=== PATIENT | female | born 1985 | race Caucasian/White ===

== ENCOUNTER 2018-05-18 16:24 | Emergency (ER) | payer SELFPAY ==
[2018-05-18] MEDS ORDERED: BUPIVACAINE 0.5% PF 10 ML VIAL ONE (17:19)
--- NOTE | 2018-05-18 18:01 | RAD REPORT ---
EXAM DESCRIPTION: RAD - Hand Left 3 View - 05/18/2018 5:43 pm CLINICAL HISTORY: Trauma distal third digit, hand pain COMPARISON: None. FINDINGS: No fracture, dislocation or periosteal reaction noted. No acute or destructive bone proces s. Soft tissue injury is present along the dorsal margin of the distal third digit. No foreign body o r air in the soft tissues. 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 IMPRESSION: Soft tissue injury left distal third digit. No foreign body or air in the soft tissues. No acute bone finding.
--- NOTE | 2018-05-18 19:00 | ER ---
Nurse's Notes [facility] Name: Yanet Galvez Age: 33 yrs Sex: Female : 1985 Arrival Date: 05/18/2018 Time: 16:26 Bed 14 Private MD: Diagnosis: Laceration without foreign body of left middle finger with damage to nail Presentation: 05/18 16:42 Presenting complaint: Patient states: Injury to the left middle finger, the nail is sg mostly missing. Transition of care: patient was not received from another setting of care. Onset of symptoms was May 18, 2018. Risk Assessment: Do you want to hurt yourself or someone else? Patient reports no desire to harm self or others. Initial Sepsis Screen: Does the patient meet any 2 criteria? No. Patient's initial sepsis screen is negative. Does the patient have a suspected source of infection? No. Patient's initial sepsis screen is negative. Care prior to arrival: None. 16:42 Method Of Arrival: Ambulatory sg 16:42 Acuity: [place] 3 sg Historical: - Allergies: 16:43 Morphine; sg - PMHx: 16:43 ADD/ADHD; sg - PSHx: 16:43 Appendectomy; pancreatitis; obstructed kidney; kidney stones; Bilateral Hand Sx; sg - Immunization history:: Adult Immunizations up to date. - Social history:: Smoking status: Patient uses tobacco products. - Ebola Screening: : Patient negative for fever greater than or equal to 101.5 degrees Fahrenheit, and additional compatible Ebola Virus Disease symptoms Patient denies exposure to infectious person Patient denies travel to an Ebola-affected area in the 21 days before illness onset No symptoms or risks identified at this time. Screenin:10 Abuse screen: Denies threats or abuse. Nutritional screening: No deficits noted. em Tuberculosis screening: No symptoms or risk factors identified. Fall Risk None identified. Assessment: 17:10 General: Appears uncomfortable, Behavior is calm, cooperative. Pain: Complains of pain em in left middle fingernail Pain currently is 10 out of 10 on a pain scale. Neuro: Level of Consciousness is awake, alert, obeys commands, Oriented to person, place, time, situation. Cardiovascular: Capillary refill < 3 seconds Patient's skin is warm and dry. Respiratory: Airway is patent Respiratory effort is even, unlabored, Respiratory pattern is regular, symmetrical. GI: Abdomen is flat. : No signs and/or symptoms were reported regarding the genitourinary system. EENT: No signs and/or symptoms were reported regarding the EENT system. Derm: Skin is intact, is healthy with good turgor, Skin is pink, warm \T\ dry. Wound noted left middle fingernail. Musculoskeletal: Capillary refill < 3 seconds, Range of motion: intact in all extremities. Injury Description: Crush injury sustained to left middle fingernail is smashed middle fingernail with a hammer, fingernail split in half, small bleeding noted was sustained 1-2 hours ago. 18:00 Reassessment: Patient appears in no apparent distress at this time. Patient and/or em family updated on plan of care and expected duration. Pain level reassessed. Patient is alert, oriented x 3, equal unlabored respirations, skin warm/dry/pink. pending for digit to become numb after medication infiltration. 19:09 Reassessment: Patient appears in no apparent distress at this time. Patient and/or tl2 family updated on plan of care and expected duration. Pain level reassessed. Patient is alert, oriented x 3, equal unlabored respirations, skin warm/dry/pink. pt verbalized understanding of discharge instructions, need for follow up, prescription usage and wound care. Vital Signs: 16:58 BP 118 / 75; Pulse 84; Resp 18; Temp 98.7; Pulse Ox 98% ; Weight 49.9 kg; Height 5 ft. ms 4 in. (162.56 cm); Pain 10/10; 18:06 BP 116 / 74; Pulse 68; Resp 18; Pulse Ox 99% on R/A; em 16:58 Body Mass Index 18.88 (49.90 kg, 162.56 cm) ms ED Course: 16:26 Patient arrived in ED. rg4 16:42 Arm band placed on. sg 16:43 Triage completed. sg 16:56 Xavier Meredith PA is PHCP. jr8 16:56 Jose Carlos Bobo MD is Attending Physician. jr8 17:10 Patient has correct armband on for positive identification. Bed in low position. Call em light in reach. Adult w/ patient. Pulse ox on. NIBP on. 17:19 Shan Hawkins LVN is Primary Nurse. em 17:43 XRAY Hand LEFT 3 View In Process Unspecified. EDMS 18:44 Assist provider with laceration repair on left middle fingernail that was 2.5 cm. or em less using sutures. Set up tray. Performed by Xavier THORPE Dressed with 4X4s, Patient tolerated well. 19:09 Patient did not have IV access during this emergency room visit. tl2 Administered Medications: 17:19 Drug: Marcaine (0.5 %) 1 vials Volume: 10 ml; Route: Infiltration; em 19:08 Drug: Demerol 25 mg Route: IM; Site: right deltoid; tl2 19:14 Follow up: Response: No adverse reaction; Medication administered at discharge. tl2 19:09 Drug: Zofran 4 mg Route: PO; tl2 19:14 Follow up: Response: No adverse reaction; Medication administered at discharge. tl2 Outcome: 19:00 Discharge ordered by . jr8 19:09 Discharged to home ambulatory, with family. tl2 19:09 Condition: stable 19:09 Discharge instructions given to patient, family, Instructed on discharge instructions, follow up and referral plans. medication usage, wound care, Demonstrated understanding of instructions, follow-up care, medications, wound care, Prescriptions given X 2. 19:16 Patient left the ED. tl2 Signatures: Dispatcher [employer] Rell Ricketts, [place] RN Shan Hawkins, LADLE HANDLER LADLE HANDLER Bri Connors ms, Josh, PA PA jr8 Mariia Moon RN RN tl2 Kaylyn Santos rg4 Corrections: (The following items were deleted from the chart) 17:09 16:58 BP 118 / 75; Pulse 84bpm; Resp 18bpm; Pulse Ox 98%; Pain 10/10; ms ms
--- NOTE | 2018-05-18 19:00 | EDPHYS ---
Physician Documentation [facility] Name: Yanet Galvez Age: 33 yrs Sex: Female : 1985 Arrival Date: 05/18/2018 Time: 16:26 Bed 14 Private MD: ED Physician Jose Carlos Bobo HPI: 05/18 19:01 This 33 yrs old Female presents to ER via Ambulatory with complaints of jr8 Finger Injury. 19:01 Onset: The symptoms/episode began/occurred acutely, today. The patient has not jr8 experienced similar symptoms in the past. The patient has not recently seen a physician. Patient was hammering and accidently hit her distal middle finger on the left hand. Historical: - Allergies: 16:43 Morphine; sg - PMHx: 16:43 ADD/ADHD; sg - PSHx: 16:43 Appendectomy; pancreatitis; obstructed kidney; kidney stones; Bilateral Hand Sx; sg - Immunization history:: Adult Immunizations up to date. - Social history:: Smoking status: Patient uses tobacco products. - Ebola Screening: : Patient negative for fever greater than or equal to 101.5 degrees Fahrenheit, and additional compatible Ebola Virus Disease symptoms Patient denies exposure to infectious person Patient denies travel to an Ebola-affected area in the 21 days before illness onset No symptoms or risks identified at this time. ROS: 19:01 Eyes: Negative for injury, pain, redness, and discharge, ENT: Negative for injury, jr8 pain, and discharge, Neck: Negative for injury, pain, and swelling, Cardiovascular: Negative for chest pain, palpitations, and edema, Respiratory: Negative for shortness of breath, cough, wheezing, and pleuritic chest pain, Abdomen/GI: Negative for abdominal pain, nausea, vomiting, diarrhea, and constipation, Back: Negative for injury and pain, Skin: Negative for injury, rash, and discoloration, Neuro: Negative for headache, weakness, numbness, tingling, and seizure. 19:01 MS/extremity: Positive for laceration, pain, swelling, tenderness, of the left middle fingernail. Exam: 19:01 Eyes: Pupils equal round and reactive to light, extra-ocular motions intact. Lids and jr8 lashes normal. Conjunctiva and sclera are non-icteric and not injected. Cornea within normal limits. Periorbital areas with no swelling, redness, or edema. ENT: Nares patent. No nasal discharge, no septal abnormalities noted. Tympanic membranes are normal and external auditory canals are clear. Oropharynx with no redness, swelling, or masses, exudates, or evidence of obstruction, uvula midline. Mucous membranes moist. Neck: Trachea midline, no thyromegaly or masses palpated, and no cervical lymphadenopathy. Supple, full range of motion without nuchal rigidity, or vertebral point tenderness. No Meningismus. Cardiovascular: Regular rate and rhythm with a normal S1 and S2. No gallops, murmurs, or rubs. Normal PMI, no JVD. No pulse deficits. Respiratory: Lungs have equal breath sounds bilaterally, clear to auscultation and percussion. No rales, rhonchi or wheezes noted. No increased work of breathing, no retractions or nasal flaring. Abdomen/GI: Soft, non-tender, with normal bowel sounds. No distension or tympany. No guarding or rebound. No evidence of tenderness throughout. Back: No spinal tenderness. No costovertebral tenderness. Full range of motion. Skin: Warm, dry with normal turgor. Normal color with no rashes, no lesions, and no evidence of cellulitis. Neuro: Awake and alert, GCS 15, oriented to person, place, time, and situation. Cranial nerves II-XII grossly intact. Motor strength 5/5 in all extremities. Sensory grossly intact. Cerebellar exam normal. Normal gait. 19:01 Musculoskeletal/extremity: Extremities: grossly normal except: noted in the left middle fingernail: Patient has nail deformity with small laceration to nail bed. No tuft fracture identified. Rest of finger without acute injury , ROM: intact in all extremities, Circulation is intact in all extremities. Sensation intact. Vital Signs: 16:58 BP 118 / 75; Pulse 84; Resp 18; Temp 98.7; Pulse Ox 98% ; Weight 49.9 kg; Height 5 ft. ms 4 in. (162.56 cm); Pain 10/10; 18:06 BP 116 / 74; Pulse 68; Resp 18; Pulse Ox 99% on R/A; em 16:58 Body Mass Index 18.88 (49.90 kg, 162.56 cm) ms Procedures: 19:01 Nerve block: (digital) of palmar aspect of proximal phalanx of left middle finger jr8 Medication: Marcaine 0.5%, Amount: 2.5 mls were injected, Effect: the patient has resolution of the pain, Set up for procedure. Performed by Xavier THORPE Patient tolerated well. Performed Nail removal. Patient was draped in sterile fashion and cleaned with Iodine. Nail removed to left third digit. No laceration to be repaired under nail. MDM: 17:04 Patient medically screened. jr8 18:58 Data reviewed: vital signs, nurses notes, radiologic studies, plain films, and as a jr8 result, I will discharge patient. Data interpreted: Pulse oximetry: on room air is 99 %. Interpretation: normal. Counseling: I had a detailed discussion with the patient and/or guardian regarding: the historical points, exam findings, and any diagnostic results supporting the discharge/admit diagnosis, radiology results, the need for outpatient follow up, a family practitioner, to return to the emergency department if symptoms worsen or persist or if there are any questions or concerns that arise at home. 05/18 17:05 Order name: XRAY Hand LEFT 3 View; Complete Time: 18:19 jr8 05/18 17:05 Order name: Dressing - Wound; Complete Time: 18:59 jr8 05/18 17:05 Order name: Gloves, Sterile; Complete Time: 17:19 jr8 05/18 17:05 Order name: Setup Suture Tray; Complete Time: 17:19 jr8 Administered Medications: 17:19 Drug: Marcaine (0.5 %) 1 vials Volume: 10 ml; Route: Infiltration; em 19:08 Drug: Demerol 25 mg Route: IM; Site: right deltoid; tl2 19:14 Follow up: Response: No adverse reaction; Medication administered at discharge. tl2 19:09 Drug: Zofran 4 mg Route: PO; tl2 19:14 Follow up: Response: No adverse reaction; Medication administered at discharge. tl2 Disposition: 05/19 07:01 Co-signature as Attending Physician, Jose Carlos Bobo MD. rn Disposition: 05/18/18 19:00 Discharged to Home. Impression: Laceration without foreign body of left middle finger with damage to nail. - Condition is Stable. - Discharge Instructions: Nail Avulsion, Nail Bed Injury, Fingernail or Toenail Removal, Care After. - Prescriptions for Keflex 500 mg Oral Capsule - take 1 capsule by ORAL route every 6 hours for 5 days; 20 capsule. Ultracet 37.5- 325 mg Oral Tablet - take 1 tablet by ORAL route every 6 hours - for up to 5 days; do not exceed 8 tablets per day.; 30 tablet. - Medication Reconciliation Form, Thank You Letter, Antibiotic Education, Prescription Opioid Use form. - Follow up: Private Physician; When: 5 - 6 days; Reason: Wound Recheck, Recheck today's complaints, Continuance of care, Re-evaluation by your physician. - Problem is new. - Symptoms have improved. Signatures: Dispatcher [employer] EDRell Vance RN RN sg Shan Hawkins, JUNIOR JAVA DEVELOPER JUNIOR JAVA DEVELOPER em Jose Carlos Bobo MD MD rn Roszak, Josh, PA PA jr8 Mariia Moon RN RN tl2 Corrections: (The following items were deleted from the chart) 05/18 19:16 19:00 05/18/2018 19:00 Discharged to Home. Impression: Laceration without foreign body tl2 of left middle finger with damage to nail. Condition is Stable. Forms are Medication Reconciliation Form, Thank You Letter, Antibiotic Education, Prescription Opioid Use. Follow up: Private Physician; When: 5 - 6 days; Reason: Wound Recheck, Recheck today's complaints, Continuance of care, Re-evaluation by your physician. Problem is new. Symptoms have improved. jr8
[2018-05-18] MEDS ORDERED: MEPERIDINE HCL 25 MG/0.5 ML ONE (19:12)
[2018-05-18] MEDS ORDERED: ONDANSETRON 4 MG (ODT) TAB ONE (19:12)
[2018-05-18 20:50] VITALS: TEMP 98.7
[2018-05-18 20:51] VITALS: BP 116/74; O2SAT 99
== END 2018-05-18 19:16 | disposition home or self-care (01) ==
LOC: ER 16:24
PROC: 0HBQXZZ Excision of Finger Nail, External Approach (ICD-10-PCS; principal; 2018-05-18)
DX: S61.313A Laceration without foreign body of left middle finger with damage to nail, initial encounter (principal); W22.8XXA Striking against or struck by other objects, initial encounter; Y93.89 Activity, other specified; Y92.9 Unspecified place or not applicable; Z72.0 Tobacco use; Z88.5 Allergy status to narcotic agent
CPT/HCPCS: 64450; 96372; 99284; J2175

== ENCOUNTER 2020-12-15 12:31 | Emergency (ER) | payer SELFPAY ==
[2020-12-15 13:03] LABS: Absolute Lymphocytes (CBC) 0.7 K/uL (0.7-4.9); Basophils % 0.3 % (0-1.3); Lymphocytes % 5.3 % (15.3-44.8); MPV 8.8 fL (7.6-11.3); RBC Red Blood Cell Count 4.63 M/uL (3.86-4.86)
[2020-12-15 13:06] LABS: Protime INR 1.04
[2020-12-15] MEDS ORDERED: NA CHLORIDE 0.9% 1,000 ML ONE (13:26)
[2020-12-15 13:29] LABS: ALT/SGPT 30 U/L (12-78); Albumin 3.9 g/dL (3.4-5.0); Alkaline Phosphatase 72 U/L (45-117); BUN Blood Urea Nitrogen 9 mg/dL (7-18); Bicarbonate 27 mmol/L (21-32); Bilirubin Direct < 0.1 mg/dL (0-0.2); Bilirubin Total 0.2 mg/dL (0.2-1.0); Glucose Level 93 mg/dL (74-106); Protein, Total 7.4 g/dL (6.4-8.2); Sodium Level 141 mmol/L (136-145)
[2020-12-15 13:32] LABS: AST/SGOT 24 U/L (15-37); Potassium 3.4 mmol/L (3.5-5.1)
[2020-12-15 16:45] LABS: Urine Blood Trace-intact (Negative); Urine Glucose Negative (Negative); Urine Protein Negative (Negative); Urine Specific Gravity >=1.030 (1.005-1.030)
[2020-12-15 17:14] LABS: Barbiturates NEGATIVE (NEGATIVE); Benzodiazepines POSITIVE (NEGATIVE); Cocaine NEGATIVE (NEGATIVE); METHAMPHETAM POSITIVE (NEGATIVE); Methadone NEGATIVE (NEGATIVE); Opiates NEGATIVE (NEGATIVE); Phencyclidine NEGATIVE (NEGATIVE); THC Cannibis POSITIVE (NEGATIVE)
--- NOTE | 2020-12-15 18:13 | ER ---
Nurse's Notes [facility] Name: Yanet Galvez Age: 35 yrs Sex: Female : 1985 Arrival Date: 12/15/2020 Time: 12:32 Bed 16 Private MD: Diagnosis: Bipolar disorder, unspecified;Suicidal ideations Presentation: 12/15 12:35 Chief complaint: Patient states: brought in by EMS for SI. Found at [facility] and admitted ch5 to taking 2 Xanax. Pt stated she was trying to hurt herself. Coronavirus screen: Vaccine status: Patient reports being unvaccinated. Client denies travel out of the [place] in the last 14 days. At this time, the client does not indicate any symptoms associated with coronavirus-19. Ebola Screen: Patient negative for fever greater than or equal to 101.5 degrees Fahrenheit, and additional compatible Ebola Virus Disease symptoms Patient denies exposure to infectious person. Patient denies travel to an Ebola-affected area in the 21 days before illness onset. No symptoms or risks identified at this time. Initial Sepsis Screen: Does the patient meet any 2 criteria? No. Patient's initial sepsis screen is negative. Does the patient have a suspected source of infection? No. Patient's initial sepsis screen is negative. Risk Assessment: Do you want to hurt yourself or someone else? Patient reports desire/thoughts of hurting themselves or someone else. Provider notified. Onset of symptoms was December 15, 2020. 12:35 Method Of Arrival: EMS: [facility] 12:35 Acuity: [place] [address] [facility] 12/16 00:10 Note Provider at bedside for reassessment. Pt denies any SI/HI. Pt calm and cooperative df1 but has no where to go after discharge. Left message on mothers cell phone [phone]. 01:15 Note pt escorted to shower with nurse tech. Charge nurse and Nursing Foundation Coordinator df1 notified. 01:46 Note Pt back to room from shower, given clean gown. df1 05:48 Note Left another message on mothers phone. 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 - Social history:: Smoking status: Patient reports the use of cigarette tobacco products, unknown amount Patient uses alcohol, patient/guardian reports recent binge of alcohol consumption. street drugs, marijuana. - Family history:: not pertinent. - Hospitalizations: : No recent hospitalization is reported. Screenin:52 Abuse screen: Denies threats or abuse. Denies injuries from another. Nutritional ch5 screening:. Tuberculosis screening: No symptoms or risk factors identified. Fall Risk None identified. Assessment: 12:55 General: Appears unkempt, Behavior is crying. ch5 15:17 Reassessment: No changes from previously documented assessment. 5 18:59 Reassessment: Pt medically cleared by Dr Bobo. Verbal order to remove leads and IV. . ch5 12/16 07:39 General: Reports Patient stated " Are we still in [place], there is something in tw5 here but I wont tell you if you dont. I want some milk to sleep, milk helps me sleep." Patient exhibits flight of ideas. 07:39 Pain: Denies pain. tw5 09:41 Reassessment: No changes from previously documented assessment. General: Appears in no tw5 apparent distress. Behavior is cooperative. 10:58 Reassessment: No changes from previously documented assessment. Patient and/or family tw5 updated on plan of care and expected duration. Pain level reassessed. Patient is alert, oriented x 3, equal unlabored respirations, skin warm/dry/pink. General: Patient still exhibiting flight of ideas. 10:59 General: Behavior is calm, Reports Nursing staff asked patient how are you feeling. tw5 Patient replies with " Please tell me the lawrence is coming in here, I only have one lawrence and there should be two lawrence, I have been listening to this lawrence all morning .I feel like I am going crazy by listening to the lawrence". 13:29 General: Patient observed talking to self in room. Walking around. Smiling. Pleasant in tw5 demeanor. . 14:09 General: Patient opened door, nursing staff asked if patient needed to use the restroom tw5 patient responded " No, do you hear that baby, I want to see the baby." Nursing staff guided patient back to the bed and reoriented patient to the fact she had a lunch tray. Patient observed eating food. . 14:09 Neuro: Level of Consciousness is. tw5 16:58 General: Patient opens door and points to nursing staff and states " You will be seeing tw5 God tomorrow". 17:21 General: Behavior is agitated, anxious, restless, Patient still exhibiting flight of tw5 ideas. General overall mood is agitation at this moment " I want to see my doctor, because your is nelson money honey. You are nelson money. I saw you dismissing me and dissing me earlier. I want to see the .". 18:16 Reassessment: patient appears to be less agitated. No longer pacing the room, but tw5 laying in the bed. Patient appears to still be having a conversion with no one else in the room. . 19:15 General: Pt appears to be talking to someone standing in the room but the room is bs2 empty, day shift nurses report this has bee an all day occurrence and that pt has gotten more agitated as the day has progressed, pt was medicated with Valium for the agitation. . 20:39 Reassessment: Reassessment: pt is still becoming more agitated, pt is now stating that bs2 there is a man standing in room 15 that has been filming her all day and that she has "asked him to stop" repeatedly, I readjusted the curtain so that the patient could not even see room 15, but the patient is becoming more paranoid. Pt is also stating that "Rupa is mad at her and that she tried to give the calf back, but Rupa refused to take it. Pt was asked to return to room and stretcher multiple times. I reminded Charge nurse that this patient needs a sitter, because we are unable to watch her 1 on 1 and treat the other patients in our pod. Charge spoke to Gilson THORPE and order for IM Haldol was received. Pt continues to have auditory and visual hallucinations, Pt was given shot in the LT gluteal. Pt also began stripping gown off I walked in the room and asked patient to keep gown on or to stay in the bed covered with her blanket. Pt is now tearful and asking me why "I told her she is an alcoholic and has warrants for her arrest" I explained to pt that I did not say any of that and that I would not know if she had warrants, that I was her nurse and not the police.. 22:00 Reassessment: Patient and/or family updated on plan of care and expected duration. Pain bs2 level reassessed. Patient is alert, oriented x 3, equal unlabored respirations, skin warm/dry/pink. pt has finally laid down in the bed, given blanket, lights dimmed curtain open and door shut. . 23:00 Reassessment: Patient and/or family updated on plan of care and expected duration. Pain bs2 level reassessed. Patient is alert, oriented x 3, equal unlabored respirations, skin warm/dry/pink. pt is sleeping, Patient states feeling better. 12/17 00:00 Reassessment: No changes from previously documented assessment. Patient and/or family bs2 updated on plan of care and expected duration. Pain level reassessed. Patient is alert, oriented x 3, equal unlabored respirations, skin warm/dry/pink. Patient states symptoms have improved. 01:00 Reassessment: No changes from previously documented assessment. Patient and/or family bs2 updated on plan of care and expected duration. Pain level reassessed. Patient is alert, oriented x 3, equal unlabored respirations, skin warm/dry/pink. Patient states feeling better. Patient states symptoms have improved. 02:00 Reassessment: No changes from previously documented assessment. Patient and/or family bs2 updated on plan of care and expected duration. Pain level reassessed. Patient is alert, oriented x 3, equal unlabored respirations, skin warm/dry/pink. Patient states feeling better. Patient states symptoms have improved. pt awaken by voice asked if she needed anything to eat and drink or bathroom, pt denied any pain. . 03:00 Reassessment: No changes from previously documented assessment. Patient and/or family bs2 updated on plan of care and expected duration. Pain level reassessed. Patient is alert, oriented x 3, equal unlabored respirations, skin warm/dry/pink. Patient states symptoms have improved. pt still sleeping, no change in status. 04:00 Reassessment: No changes from previously documented assessment. Patient and/or family bs2 updated on plan of care and expected duration. Pain level reassessed. Patient is alert, oriented x 3, equal unlabored respirations, skin warm/dry/pink. Patient states feeling better. Patient states symptoms have improved. pt awoke given drink and pt returned back to sleep. 05:00 Reassessment: No changes from previously documented assessment. Patient and/or family bs2 updated on plan of care and expected duration. Pain level reassessed. Patient is alert, oriented x 3, equal unlabored respirations, skin warm/dry/pink. Patient states symptoms have improved. 05:58 Reassessment: No changes from previously documented assessment. Patient and/or family bs2 updated on plan of care and expected duration. Pain level reassessed. Patient is alert, oriented x 3, equal unlabored respirations, skin warm/dry/pink. Patient states symptoms have improved. 07:30 Reassessment: Patient and/or family updated on plan of care and expected duration. Pain jd3 level reassessed. pt resting at this time, breakfast ordered, no signs of distress at this time. Cardiovascular: No deficits noted. Respiratory: Airway is patent Respiratory effort is even, unlabored, Respiratory pattern is regular, symmetrical. 11:19 Reassessment: Patient and/or family updated on plan of care and expected duration. Pain jd3 level reassessed. breakfast given to pt, pt ambulated to bathroom, no distress noted at this time. 12:00 Reassessment: Patient appears in no apparent distress at this time. Patient and/or jd3 family updated on plan of care and expected duration. Pain level reassessed. Patient is alert, oriented x 3, equal unlabored respirations, skin warm/dry/pink. denies suicidal ideation. reports wanting to leave the hospital. provider notified. Neuro: Level of Consciousness is awake, alert, obeys commands, Oriented to person, place, time, situation. 14:08 Reassessment: pt up at bedside eating, pt calm and no signs of distress at this time. jd3 15:26 Reassessment: No changes from previously documented assessment. Patient and/or family jd3 updated on plan of care and expected duration. Pain level reassessed. pt resting in bed, denies pain or distress at this time. 17:00 Reassessment: Patient appears in no apparent distress at this time. Patient and/or jd3 family updated on plan of care and expected duration. Pain level reassessed. Patient is alert, oriented x 3, equal unlabored respirations, skin warm/dry/pink. 18:00 Reassessment: Patient appears in no apparent distress at this time. Patient and/or jd3 family updated on plan of care and expected duration. Pain level reassessed. Patient is alert, oriented x 3, equal unlabored respirations, skin warm/dry/pink. Patient denies pain at this time. Patient states feeling better. 18:10 Reassessment: Patient appears in no apparent distress at this time. Patient and/or jd3 family updated on plan of care and expected duration. Pain level reassessed. Patient is alert, oriented x 3, equal unlabored respirations, skin warm/dry/pink. pt reported understanding of discharged instructions. even and steady gait upon discharge. friend reported "I'll take care of her because her old man that passed one one of my good friends, but her mom is a piece of shit throwing her out of the house and not helping the situation and blaming her for everything going wrong.". Psych: 12/16 14:14 Subjective: Patient's mood is elevated, Hallucinations are auditory, visual. tw5 Vital Signs: 12/15 12:35 BP 147 / 103; Pulse 114; Resp 20; Temp 98.6; Pulse Ox 99% ; Weight 56.7 kg; Height 5 ch5 ft. 4 in. (162.56 cm); 14:28 BP 135 / 92; Pulse 94; Resp 16; Pulse Ox 100% on R/A; ch5 14:58 BP 126 / 85; Pulse 93; Resp 18; Pulse Ox 100% on R/A; ch5 16:20 BP 118 / 93; Pulse 92; Resp 18; Pulse Ox 99% on R/A; ch5 18:58 BP 116 / 88; Pulse 90; Resp 18; Pulse Ox 100% on R/A; ch5 21:20 BP 120 / 78; Pulse 88; Resp 18; Pulse Ox 99% on R/A; df1 23:29 BP 125 / 75; Pulse 86; Pulse Ox 98% ; ds4 12/16 15:48 BP 154 / 87; Pulse 84; Resp 17 S; Temp 98.7(O); Pulse Ox 97% on R/A; jd3 21:47 BP 134 / 95; Pulse 105; Resp 18; Temp 98.6; Pulse Ox 100% ; Pain 0/10; bs2 12/17 06:52 BP 138 / 100 RA Supine (auto/reg); Pulse 70 MON; Resp 15 S; Temp 97.6(O); Pulse Ox 98% bs2 ; Pain 0/10; 13:00 BP 129 / 71; Pulse 78; Resp 18; Temp 98.2; Pulse Ox 99% on R/A; sl2 12/15 12:35 Body Mass Index 21.46 (56.70 kg, 162.56 cm) ch5 ED Course: 12/15 12:32 Patient arrived in ED. am2 12:35 Blayne Rondon, [place] is Primary Nurse. ch5 12:38 Triage completed. ch5 12:39 Jose Carlos Bobo MD is Attending Physician. rn 12:50 Inserted saline lock: 20 gauge in left antecubital area, using aseptic technique. jt3 12:52 No provider procedures requiring assistance completed. ch5 12:55 Bed in low position. Call light in reach. ch5 13:18 Salicylate Sent. ch5 13:18 Ptt, Activated Sent. ch5 13:18 PT-INR Sent. ch5 13:18 Hepatic Function Sent. ch5 13:18 ETOH Level Sent. ch5 13:18 CBC with Diff Sent. ch5 13:18 Basic Metabolic Panel Sent. ch5 13:19 Acetaminophen Sent. ch5 17:05 notified [facility] of need for a screener to evaluate pt. bd 18:20 faxed chart to [facility], [facility]. 18:46 confirmed with Ray at [facility] that chart was received. bd 18:55 initiated transfer to [facility], pt denied due to being at capacity, per Jam. 18:58 IV discontinued, intact. ch5 18:59 Sitter at bedside. ch5 21:21 Arm band placed on right wrist. df1 12/16 08:42 spoke with Neha at [facility] chart has been reviewed, pt is on waiting list for a [facility] bed. 09:41 watching TV, eating meal. tw5 09:41 Diet: Patient given a regular meal tray. tw5 12/17 08:36 Diet: Patient given a regular meal tray. 5 Administered Medications: 12/15 13:18 Drug: NS 0.9% 1000 ml Route: IV; Rate: 1000 ml; Site: left antecubital; ch5 12/16 09:43 Follow up: IV Status: Completed infusion; completed by previous shift tw5 12/15 20:15 Drug: Motrin (ibuprofen) 600 mg Route: PO; df1 22:00 Follow up: Response: Pain is decreased df1 12/16 16:57 Drug: Nicoderm CQ Patch 21 mg/24 hr 1 patches Route: Transdermal; Site: affected area; jd3 17:50 Follow up: Response: No adverse reaction jd3 17:26 Drug: Valium (diazepam) 5 mg Route: PO; jd3 18:16 Follow up: Response: No adverse reaction tw5 20:31 Drug: HALdol (as decanoate) 10 mg Route: IM; Site: left gluteus; bs2 12/17 05:50 Follow up: Response: No adverse reaction bs2 Intake: Outcome: 12/15 18:13 ER care complete, transfer ordered by MD. rn 12/17 18:07 Discharge ordered by MD. rn 18:28 Discharged to home ambulatory, with friend. jd3 18:28 Condition: stable 18:28 Discharge instructions given to patient, friend, Instructed on discharge instructions, follow up and referral plans. Demonstrated understanding of instructions, follow-up care. 18:29 Patient left the ED. jd3 Signatures: Madhavi Rothman Roman, MD MD rn Swanson, Donovan ds4 Bri Sim Yolanda Beaver amJesus Ghosh RN RN jd3 Lia Carreon RN RN ld1 Ruby Del Valle RN RN bs2 Blayne Rondon RN RN ch5 Inés Valadez df1 Luisa Garrett tw5 Jennifer Salazar, RN RN sl2 Dani Cooney RN RN jt3 Corrections: (The following items were deleted from the chart) 12/15 12:52 12:51 PMHx: ADD/ADHD; ch5 ch5 12/16 00:01 12/15 12:51 Allergies: Morphine [Inactive]; ch5 df1 12/16 00:01 12/15 23:31 Allergies: No Known Allergies; df1 df1 12/16 20:40 20:36 General: Pt appears to be talking to someone standing in the room but the room is bs2 empty, day shift nurses report this has bee an all day occurrence and that pt has gotten more agitated as the day has progressed, pt was medicated with Valium for the agitation. . bs2 20:49 20:39 Reassessment: bs2 bs2 12/17 15:26 14:08 Reassessment: pt up at bedside eating, pt calm and no signs of distress at this jd3 time ld1 18:28 07:30 Reassessment: Patient and/or family updated on plan of care and expected jd3 duration. Pain level reassessed. pt resting at this time, breakfast ordered, no signs of distress at this time jd3
--- NOTE | 2020-12-15 18:14 | EDPHYS ---
Physician Documentation [facility] Name: Yanet Galvez Age: 35 yrs Sex: Female : 1985 Arrival Date: 12/15/2020 Time: 12:32 Bed 16 Private MD: ED Physician Jose Carlos Bobo HPI: 12/15 15:15 This 35 yrs old Female presents to ER via EMS with complaints of Suicidal rn Ideation. 15:15 The patient presents to the emergency department with depression, a history of rn substance abuse, suicide ideation. Onset: The symptoms/episode began/occurred at an unknown time. Associated signs and symptoms: Pertinent positives; depression, suicide ideation, Pertinent negatives: abdominal pain, chest pain, headache, homicidal ideation. Severity of symptoms: At their worst the symptoms were moderate in the emergency department the symptoms are unchanged. The patient has experienced similar episodes in the past. The patient has not recently seen a physician. Patient was found intoxicated in religious so 911 was called, patient reports drinking today and recently has been doing "every drug she can get her hands on", reports has been having suicidal ideation. Denies any fever or focal pain. Reports recently lost her and father and her house. She did not take anything in attempt to take her life, but reports has been having suicidal ideation.. Historical: - Allergies: 23:31 Morphine; df1 23:31 Red Dye; df1 - Home Meds: 23:31 Wellbutrin Oral [Active]; gabapentin oral [Active]; Zanaflex Oral [Active]; Zoloft Oral df1 [Active]; Pt unable to verify all meds and dosages [Active]; - PMHx: 23:31 Bipolar disorder; PTSD; Depression; Anxiety; df1 - PSHx: 23:31 Appendectomy; 2nd, 3rd, 4th digits right hand amputated; 1st and 2nd digit left hand df1 amputated; - Immunization history:: Adult Immunizations unknown. - Social history:: Smoking status: Patient reports the use of cigarette tobacco products, unknown amount Patient uses alcohol, patient/guardian reports recent binge of alcohol consumption. street drugs, marijuana. - Family history:: not pertinent. - Hospitalizations: : No recent hospitalization is reported. ROS: 15:15 Constitutional: Negative for fever, chills, and weight loss, Eyes: Negative for injury, rn pain, redness, and discharge, ENT: Negative for injury, pain, and discharge, Neck: Negative for injury, pain, and swelling, Cardiovascular: Negative for chest pain, palpitations, and edema, Respiratory: Negative for shortness of breath, cough, wheezing, and pleuritic chest pain, Abdomen/GI: Negative for abdominal pain, nausea, vomiting, diarrhea, and constipation, Back: Negative for injury and pain, : Negative for injury, bleeding, discharge, and swelling, MS/Extremity: Negative for injury and deformity, Skin: Negative for injury, rash, and discoloration, Neuro: Negative for headache, weakness, numbness, tingling, and seizure, Psych: Negative for anxiety, homicidal ideation, and hallucinations Exam: 15:15 Constitutional: This is a well developed, well nourished patient who is awake, alert, rn and in no acute distress. Head/Face: Normocephalic, atraumatic. Eyes: Periorbital areas with no swelling, redness, or edema. ENT: Dry mucous membranes Cardiovascular: Regular rate and rhythm. No pulse deficits. Respiratory: No increased work of breathing, no retractions or nasal flaring. Abdomen/GI: Soft, non-tender Skin: Warm, dry MS/ Extremity: Pulses equal, no cyanosis. Neuro: Awake and alert, GCS 15 15:36 ECG was reviewed by the Attending Physician. rn Vital Signs: 12:35 BP 147 / 103; Pulse 114; Resp 20; Temp 98.6; Pulse Ox 99% ; Weight 56.7 kg; Height 5 ch5 ft. 4 in. (162.56 cm); 14:28 BP 135 / 92; Pulse 94; Resp 16; Pulse Ox 100% on R/A; ch5 14:58 BP 126 / 85; Pulse 93; Resp 18; Pulse Ox 100% on R/A; ch5 16:20 BP 118 / 93; Pulse 92; Resp 18; Pulse Ox 99% on R/A; ch5 18:58 BP 116 / 88; Pulse 90; Resp 18; Pulse Ox 100% on R/A; ch5 21:20 BP 120 / 78; Pulse 88; Resp 18; Pulse Ox 99% on R/A; df1 23:29 BP 125 / 75; Pulse 86; Pulse Ox 98% ; ds4 12/16 15:48 BP 154 / 87; Pulse 84; Resp 17 S; Temp 98.7(O); Pulse Ox 97% on R/A; jd3 21:47 BP 134 / 95; Pulse 105; Resp 18; Temp 98.6; Pulse Ox 100% ; Pain 0/10; bs2 12/17 06:52 BP 138 / 100 RA Supine (auto/reg); Pulse 70 MON; Resp 15 S; Temp 97.6(O); Pulse Ox 98% bs2 ; Pain 0/10; 13:00 BP 129 / 71; Pulse 78; Resp 18; Temp 98.2; Pulse Ox 99% on R/A; sl2 12/15 12:35 Body Mass Index 21.46 (56.70 kg, 162.56 cm) ch5 MDM: 12/15 12:39 Patient medically screened. rn 17:47 ED course: She is being evaluated by [facility] currently. rn 18:09 Differential diagnosis: depression, bipolar disorder, drug abuse, substance abuse, rn suicidal ideation. Data reviewed: vital signs, nurses notes, lab test result(s), and as a result, I will admit patient. Counseling: I had a detailed discussion with the patient and/or guardian regarding: the historical points, exam findings, and any diagnostic results supporting the discharge/admit diagnosis, lab results, the need to transfer to another facility, for higher level of care, [facility] does not immediately have the required specialist. ED course: Patient evaluated by [facility], their official recommendation is inpatient treatment due to noncompliance with medication, substance abuse and continuous thoughts of harming herself. Patient states that ultimately does not believe that she could kill herself all right, thinks that by doing is many drugs that she can she will eventually accidentally overdose and . 12/16 07:59 ED course: Patient reevaluated this morning. No acceptance for transfer yet. Patient rn seems even more manic this morning, not making sounds, nonredirectable with pressured speech. We will continue to try to transfer patient. 12/17 04:33 ED course: Patient not in any distress. Vital signs stable. Awaiting transfer to [facility] psychiatric facility. 18:01 Response to treatment: the patient's symptoms have markedly improved after treatment. harness repairer course: Patient still without acceptance at psychiatric facility. Patient given Haldol last night and doing much better today. No agitation or pressured speech. Patient has family member or family friend who has offered to come pick her up. Patient today is denying any suicidal ideations. States feels safe going home with person who is picking her up and knows them. Patient does not have access to any weapons and has psychiatric follow-up on the second. Asked by multiple providers and nurses and denies suicidal ideation every single time. Will DC home in care of friend.. 12/15 12:48 Order name: Acetaminophen; Complete Time: 15:14 rn 12/15 12:48 Order name: Basic Metabolic Panel; Complete Time: 15:14 rn 12/15 12:48 Order name: CBC with Diff rn 12/15 12:48 Order name: ETOH Level rn 12/15 12:48 Order name: Hepatic Function; Complete Time: 15:14 12/15 12:48 Order name: PT-INR 12/15 12:48 Order name: Ptt, Activated 12/15 12:48 Order name: Salicylate; Complete Time: 15:14 12/15 12:48 Order name: Urine Drug Screen; Complete Time: 17:33 12/15 13:11 Order name: Protime (+INR); Complete Time: 15:14 EDPA 12/15 13:11 Order name: PTT, Activated Partial Thromb; Complete Time: 15:14 EDPA 12/15 13:15 Order name: CBC with Automated Diff; Complete Time: 15:14 EDPA 12/15 13:29 Order name: Alcohol Serum/Plasma EDPA 12/15 16:45 Order name: Urine Dipstick-Ancillary; Complete Time: 17:33 EDPA 12/15 12:48 Order name: EKG; Complete Time: 12:49 rn 12/15 12:48 Order name: EKG - Nurse/Tech; Complete Time: 13:17 rn 12/15 12:48 Order name: IV Saline Lock; Complete Time: 12:57 rn 12/15 12:48 Order name: Labs collected and sent; Complete Time: 12:57 12/15 18:13 Order name: COVID-19 SARS RT PCR (Document "Date of Onset" if Symptomatic); Complete bd Time: 23:49 12/16 07:05 Order name: Diet Regular; Complete Time: 16:50 df1 12/16 09:43 Order name: Diet Finger Food; Complete Time: 16:52 tw5 12/16 16:58 Order name: Finger Food EDPA 12/16 17:32 Order name: Finger Food EDPA 12/17 07:03 Order name: Diet Finger Food; Complete Time: 07:04 jd3 12/17 10:44 Order name: Diet Finger Food; Complete Time: 10:45 jd3 12/15 12:48 Order name: Suicide Precautions; Complete Time: 12:57 rn 12/15 12:48 Order name: Suicide Screening ([place]); Complete Time: 13:17 rn 12/15 12:48 Order name: Urine Dipstick-Ancillary (obtain specimen); Complete Time: 19:06 rn 12/15 12:48 Order name: Urine Test (obtain specimen); Complete Time: 19:06 rn EC/26 15:36 Rate is 96 beats/min. Rhythm is regular. QRS [place] is Normal. ID interval is normal. QRS rn interval is normal. QT interval is prolonged at 492 msec. No Q waves. T waves are Normal. No ST changes noted. Clinical impression: NSR w/ Non-specific ST/T Changes. Interpreted by me. Administered Medications: 13:18 Drug: NS 0.9% 1000 ml Route: IV; Rate: 1000 ml; Site: left antecubital; ch5 12/16 09:43 Follow up: IV Status: Completed infusion; completed by previous shift tw5 12/15 20:15 Drug: Motrin (ibuprofen) 600 mg Route: PO; df1 22:00 Follow up: Response: Pain is decreased df1 12/16 16:57 Drug: Nicoderm CQ Patch 21 mg/24 hr 1 patches Route: Transdermal; Site: affected area; jd3 17:50 Follow up: Response: No adverse reaction jd3 17:26 Drug: Valium (diazepam) 5 mg Route: PO; jd3 18:16 Follow up: Response: No adverse reaction tw5 20:31 Drug: HALdol (as decanoate) 10 mg Route: IM; Site: left gluteus; bs2 12/17 05:50 Follow up: Response: No adverse reaction bs2 Disposition Summary: 12/17/20 18:07 Discharge Ordered Location: Home rn Problem: new(12/17/20 18:07) rn Symptoms: have improved(12/17/20 18:07) rn Condition: Stable(12/17/20 18:07) rn Diagnosis - Bipolar disorder, unspecified(12/17/20 18:07) rn - Suicidal ideations(12/17/20 18:07) rn Followup: rn - With: Private Physician - When: As needed - Reason: Recheck today's complaints, Re-evaluation by your physician Discharge Instructions: - Discharge Summary Sheet rn - Suicidal Feelings: How to Help Yourself rn - Stress, Adult rn - Pia rn Forms: - Medication Reconciliation Form rn - Thank You Letter rn - Antibiotic operator coating furnace - Prescription Opioid Use rn Signatures: Dispatcher [employer] EDGilson Jimenez MD MD cha Lam, Pin, MD MD pkl Nieto, Roman, MD MD rn Page, Corey, Jesus Rodriguez cp, RN RN jRuby Rivers, RN RN bs2 Blayne Rondon, RN RN ch5 Inés Valadez df1 Luisa Garrett tw5 Corrections: (The following items were deleted from the chart) 12/15 12:52 12:51 PMHx: ADD/ADHD; ch5 ch5 12/16 00:01 12/15 12:51 Allergies: Morphine [Inactive]; ch5 df1 12/16 00:01 12/15 23:31 Allergies: No Known Allergies; df1 df1 12/17 18:07 12/15 18:13 rn rn 12/17 18:07 12/15 18:13 Psych Facility rn rn 12/17 18:07 12/15 18:13 Higher level of care rn rn 12/17 18:07 12/15 18:13 Stable rn rn 12/17 18:07 12/15 18:13 new rn rn 12/17 18:07 12/15 18:13 are unchanged rn rn 12/17 18:07 12/15 18:13 Suicidal ideations rn rn 12/17 18:07 12/15 18:13 Bipolar disorder, unspecified rn rn
[2020-12-15] MEDS ORDERED: IBUPROFEN 400 MG TAB ONE (20:35)
[2020-12-15] MEDS ORDERED: IBUPROFEN 200 MG TAB PO ONE (20:35)
--- NOTE | 2020-12-16 16:09 | EKG ---
Test Date: 2020-12-15 Test Time: 13:11:08 Investment Sales Assistant: JAMES MEASUREMENT RESULTS: Intervals: Rate: 96 MI: 138 QRSD: 96 QT: 390 QTc: 492 [place]: P: 62 MI: 138 QRS: 49 T: 59 INTERPRETIVE STATEMENTS: Normal sinus rhythm Possible Left atrial enlargement Prolonged QT Abnormal ECG Compared to ECG 01/12/2009 18:21:55 Prolonged QT interval now present Electronically Signed On 12-16-20 16:07:14 CDT by Kameron Álvarez
[2020-12-16] MEDS ORDERED: NICOTINE 21 MG/PAT TD ONE (17:20)
[2020-12-16] MEDS ORDERED: DIAZEPAM 5 MG TABLET ONE (17:43)
[2020-12-16] MEDS ORDERED: HALOPERIDOL LACT 5 MG/ML INJ ONE ×2 (20:41→20:44)
[2020-12-17 19:19] VITALS: BP 129/71; TEMP 98.2; O2SAT 99
== END 2020-12-17 18:29 | disposition home or self-care (01) ==
LOC: ER 12:31
DX: R45.851 Suicidal ideations (principal); F31.9 Bipolar disorder, unspecified; Z72.0 Tobacco use; Z88.5 Allergy status to narcotic agent; Z91.02 Food additives allergy status
CPT/HCPCS: 36415; 80048; 80076; 80307; 80320; 80329; 81003; 85025; 85610; 85730; 93005; 96360; 96361; 96372; 99285; J7030; U0003